=== PATIENT | male | born 1950 | race Caucasian/White ===

== ENCOUNTER 2022-01-13 23:02 | Emergency (ER) | payer MEDICARE, OTHER ==
[~2022-01-13] VITALS: Ht 180.3 cm; Wt 91.8 kg
[2022-01-13 23:19] VITALS: BP 166/84
[2022-01-13 23:31] VITALS: BP 165/86
[2022-01-13 23:45] VITALS: BP 150/82
[2022-01-13 23:58] LABS: HEMATOCRIT 39.9 % (39.0-50.0); HEMOGLOBIN 13.5 g/dl (14.0-18.0); MEAN CELL VOLUME 89.5 fL CALC (80.0-100.0); MEAN CORPUSCULAR HGB 30.3 pG CALC (26.0-32.0); MEAN CORPUSCULAR HGB CONC 33.8 g/dL CAL (32.0-36.0); NEUT# 3.25 thou/uL (1.82-7.42); RED BLOOD COUNT 4.46 mill/uL (4.70-6.10); RED CELL DISTRI WIDTH 13.1 % (11.5-15.5)
[2022-01-14] VITALS (8 sets, daily range): BP systolic 140–153; BP diastolic 75–83
[2022-01-14 00:01] LABS: ALBUMIN 4.6 g/dL (3.2-5.0); ALKALINE PHOSPHATASE 72 u/l (38-126); ANION GAP 13 (6-22 (CALC)); BILIRUBIN, TOTAL 0.3 mg/dL (0.0-1.4); BUN 22 mg/dL (8-23); BUN/CREATININE RATIO 16 (12-20 (CALC)); CARBON DIOXIDE 27 mmol/l (22-30); CHLORIDE 108 mmol/l (95-108); CREATININE 1.3 mg/dL (0.7-1.3); GFR FOR AFR.AMER. > 60 ML/MIN (>=60 (CALC)); GFR OTHER RACES 54 ML/MIN (>=60 (CALC)); POTASSIUM 4.4 mmol/l (3.5-5.1); SGOT/AST 29 u/l (19-48); SODIUM 144 mmol/l (137-146); TOTAL PROTEIN 7.3 g/dL (6.3-8.2)
[2022-01-14 00:14] LABS: URINE BILIRUBIN - DIPSTICK NEGATIVE (NEGATIVE); URINE BLOOD DIPSTICK LARGE (NEGATIVE); URINE COLOR YELLOW; URINE GLUCOSE - DIPSTICK NEGATIVE (NEGATIVE); URINE KETONE TRACE mg/dL (NEGATIVE); URINE PH 5.5 (4.5-8.0); URINE PROTEIN - DIPSTICK NEGATIVE (NEG-TRACE); URINE SPECIFIC GRAVITY >=1.030; URINE UROBILINOGEN - DIPSTICK 0.2 E.U./dL (0.2)
[2022-01-14 00:16] LABS: URINE NITRITE - DIPSTICK NEGATIVE (Negative)
[2022-01-14 00:21] LABS: URINE LEUK ESTERASE NEGATIVE (NEGATIVE)
[2022-01-14 00:22] LABS: URINE RBC >100 RBC/hpf (0-5)
[2022-01-14 00:23] LABS: URINE BACTERIA MODERATE hpf; URINE EPITHELIAL CELLS FEW EPI/hpf (0-FEW); URINE MUCUS MANY hpf (NONE-FEW)
[2022-01-14] MEDS ORDERED: CIPROFLOXACN500 MG PO (02:00)
== END 2022-01-14 02:47 | disposition home or self-care (01) ==
LOC: ED 23:02
PROVIDERS: Emergency Medicine
DX: N39.0 Urinary tract infection, site not specified (principal); R31.9 Hematuria, unspecified; I10 Essential (primary) hypertension
CPT/HCPCS: J1956; Q9967

== ENCOUNTER 2024-01-24 17:17 | Emergency (ER) | payer MEDICARE ==
[~2024-01-24] VITALS: Ht 180.3 cm; Wt 92.0 kg
[~2024-01-24 17:17] MED LIST: ASPIRIN 81 LOW81 MG; BACTRIM DS1 TAB PO; CIPROFLOXACN500 MG PO; COZAAR25 MG PO; MELOXICAM15 MG PO; OMEPRAZOLE DR40 MG; SYNTHROID88 MCG PO; TAMSULOSIN0.4 MG PO
[2024-01-24] MEDS ORDERED: SODIUM CHLORIDE 500 ML BTL IR ONE (17:40)
[2024-01-24] MEDS ORDERED: NEOMYCIN-BACITRACIN-POLYMYXIN 0.5 GM/PAK PAK TOP ONE (17:40)
[2024-01-24] MEDS ORDERED: Diph, Acellular Pertussis, Tet 0.5 ML/VIAL (Tdap) SDV IM ONE (17:40)
[2024-01-24] MEDS ORDERED: POVIDONE IODINE 0.5 OZ/BTL TOP ONE (17:40)
[2024-01-24] MEDS ORDERED: CEPHALEXIN500 M1 PO (18:19)
[2024-01-24] MEDS ORDERED: TRAMADOL HYDROC50 M1 PO (18:50)
[2024-01-24] MEDS ORDERED: MOTRIN400 MG/TAB PO (18:50)
[2024-01-24 19:04] VITALS: BP 137/78
[2024-01-24] MEDS ORDERED: KEFLEX500 MG PO (19:39)
== END 2024-01-24 19:20 | disposition home or self-care (01) ==
LOC: ED 17:17
PROC: 0HQGXZZ Repair Left Hand Skin, External Approach (ICD-10-PCS; principal; 2024-01-24)
DX: I10 Essential (primary) hypertension (principal); K21.9 Gastro-esophageal reflux disease without esophagitis; N40.0 Benign prostatic hyperplasia without lower urinary tract symptoms; S61.412A Laceration without foreign body of left hand, initial encounter; W26.8XXA Contact with other sharp object(s), not elsewhere classified, initial encounter; Y92.009 Unspecified place in unspecified non-institutional (private) residence as the place of occurrence of the external cause
CPT/HCPCS: J0690

== ENCOUNTER 2024-01-28 12:22 | Emergency (ER) | payer MEDICARE ==
[~2024-01-28] VITALS: Ht 180.3 cm; Wt 96.3 kg
[~2024-01-28 12:22] MED LIST changes: +CEPHALEXIN500 M1 PO; +KEFLEX500 MG PO; +MOTRIN400 MG/TAB PO; +TRAMADOL HYDROC50 M1 PO
[2024-01-28] MEDS ORDERED: CLINDAMYCIN PHOSPHATE 50 ML IV ONE (12:35)
[2024-01-28] MEDS ORDERED: KETOROLAC TROMETHAMINE 15 MG/ML SDV IV ONE ×2 (12:35→19:00)
[2024-01-28 12:58] LABS: BASO% 0.3 % (0-3); EOS% 2.8 % (0-8); IMMATURE GRANULOCYTES 0.3 % (0.0-5.0); LYMPH% 27.8 % (15-41); MEAN CELL VOLUME 89.9 fL CALC (80.0-100.0); MEAN CORPUSCULAR HGB 30.3 pG CALC (26.0-32.0); MEAN CORPUSCULAR HGB CONC 33.7 g/dL CAL (32.0-36.0); NEUT# 3.65 thou/uL (1.82-7.42); NEUT% 56.8 % (42-76); RED BLOOD COUNT 3.47 mill/uL (4.70-6.10); RED CELL DISTRI WIDTH 12.9 % (11.5-15.5)
[2024-01-28 13:00] LABS: HEMATOCRIT 31.2 % (39.0-50.0); HEMOGLOBIN 10.5 g/dl (14.0-18.0)
[2024-01-28 13:10] LABS: BILIRUBIN, TOTAL 0.4 mg/dL (0.2-1.3); CREATININE 1.1 mg/dL (0.7-1.3); POTASSIUM 3.6 mmol/l (3.5-5.1); TOTAL PROTEIN 6.6 g/dL (6.3-8.2)
[2024-01-28] MEDS ORDERED: VANCOMYCIN HCL 1 GM in SODIUM CHLORIDE 0.9% 250 ML IV ONE (17:25)
[2024-01-28 18:13] VITALS: BP 141/67
[2024-01-28 18:16] VITALS: BP 137/72
[2024-01-28 18:30] VITALS: BP 140/75
[2024-01-28 19:00] VITALS: BP 140/75
== END 2024-01-28 19:02 ==
LOC: ED 12:22
PROVIDERS: Nurse Practitioner Family
DX: L02.512 Cutaneous abscess of left hand (principal); L03.114 Cellulitis of left upper limb; S61.412A Laceration without foreign body of left hand, initial encounter; I10 Essential (primary) hypertension; X58.XXXA Exposure to other specified factors, initial encounter
CPT/HCPCS: J0736